=== PATIENT | male | born 1995 | race Caucasian/White ===

== ENCOUNTER 2017-07-03 23:00 | Emergency (ER) | payer OTHER ==
[~2017-07-03] VITALS: Ht 177.8 cm; Wt 68.1 kg
[~2017-07-03 23:00] MED LIST: FLEXERIL5 MG PO; NAPROSYN500 MG PO; TRAMADOL HCL50 MG PO
[2017-07-04] MEDS ORDERED: DICLOFENAC SODI75 MG PO (04:00)
[2017-07-04] MEDS ORDERED: FLEXERIL10 MG PO (04:00)
[2017-07-04 04:13] VITALS: BP 142/91
== END 2017-07-04 04:14 | disposition home or self-care (01) ==
LOC: EME 23:00 → EXP 23:00
DX: S39.012A Strain of muscle, fascia and tendon of lower back, initial encounter (principal); M62.830 Muscle spasm of back; F17.200 Nicotine dependence, unspecified, uncomplicated
CPT/HCPCS: 99281; 99284; J1885